=== PATIENT | female | born 1995 | race Hispanic/Latino ===

== ENCOUNTER 2017-01-26 13:00 | Emergency (ER) | payer MEDICAID, OTHER ==
[2017-01-26] MEDS ORDERED: DIPHENHYDRAMINE 25 MG CAPSULE PO ONE (13:30)
--- NOTE | 2017-01-26 14:52 | ER PHYSICIAN DOCUMENTATION ---
Physician Documentation [facility] Name:Fidelia Choi Age:21 yrs Sex:Female :1995 Arrival Date:01/26/2017 Time:13:00 Bed1 Private MD:Binu Rey ED, John Disposition: 01/26/17 13:44 Discharged to Home/Self Care. Impression: Periorbital Swelling. - Condition is Good. - Discharge Instructions: ANGIOEDEMA. - Work release form, Medical Reconciliation form form. - Follow up: Kadeem Cope MD; When: get appointment STACY.; Reason: Continuance of care. - Problem is new. - Symptoms have improved. HPI: 01/26 14:00 This 21 yrs old Female presents to ER via Private Vehicle with complaints of jm Lips Swelling. 14:00 The patient presents with swelling. The problem is located in the upper rory jm border and left corner of mouth. Onset: The symptom(s)/episode began/occurred today, 5 hour(s) ago. Duration: The symptoms are continuous, but are steadily getting better. Associated signs and symptoms: Pertinent negatives: dysphagia, inability to eat, redness in area, vomiting. The patient has not experienced similar symptoms in the past. Pt's upper L lip started to swell. She noted it upon waking. She denies any SOB, dysphagia, or other allergic sx. Pt said she iced it and it went down. She denies new detergents, pets, meds, or foods. . Historical: - Allergies: PENICILLINS; molds ; - Home Meds: 1. Plaquenil 200 mg oral tab 1 tab hs - PMHx: RA; - PSHx: None; - Tetanus: unknown. - Ebola Screening: : Patient negative for fever greater than or equal to 101.5 degrees Fahrenheit, and additional compatible Ebola Virus Disease symptoms. Patient denies exposure to infectious person. Patient denies travel to an Ebola-affected area in the 21 days before illness onset. No symptoms or risks identified at this time. . - Immunization history: Flu Vaccine unknown. - Social history: Smoking status: Patient uses tobacco products, current every day smoker. ROS: 14:00 Constitutional: Negative for fatigue, fever. jm 14:00 ENT: Negative for difficulty swallowing, difficulty handling secretions, hoarseness. 14:00 Neck: Negative for swelling. 14:00 Respiratory: Negative for cough, shortness of breath. 14:00 Abdomen/GI: Negative for vomiting. 14:00 Skin: Positive for swelling, Negative for rash. Exam: 14:00 Constitutional: The patient appears alert, awake, comfortable. 14:00 ENT: Mouth: Lips: upper L lip is swollen (mild). , Posterior pharynx: Uvula: midline, swelling, is not appreciated. 14:00 Neck: External neck: swelling, is not appreciated, ROM/movement: is normal. 14:00 Respiratory: Respirations: normal, Breath sounds: wheezing, is not appreciated. Vital Signs: 13:11 BP 120 / 80; Pulse 82; Resp 20; Temp 98.0(T); Pulse Ox 96% on R/A; Weight 68.04 kg; cb Height 5 ft. 2 in. (157.48 cm); Pain 0/10; 13:36 BP 127 / 90; Pulse 81; Pulse Ox 92% on R/A; cb 13:11 Body Mass Index 27.44 (68.04 kg, 157.48 cm) cb MDM: 13:34 Patient medically screened. 14:00 Differential diagnosis: allergic rxn. Data reviewed: vital signs, nurses notes, and as jm a result, I will discharge patient. Counseling: I had a detailed discussion with the patient and/or guardian regarding: the historical points, exam findings, and any diagnostic results supporting the discharge/admit diagnosis, the need for outpatient follow up, an allergy/psych sales specialist. Medication response: The patient's symptoms have improved. ED course: Pt's lip was already decreasing upon arrival, so I don't know how bad it was. Pt will need allergy f/u. Pt never had any SOB/throat issues, but told to RTED if that every happens. Pt given Benadryl and day off work. . Dispensed Medications: 13:27 Drug: Benadryl 25 mg; Route: PO; cb 13:58 Follow up: Response: No adverse reaction cb Signatures: Marylin Cool RN RN cb Meyer, John, MD MD
--- NOTE | 2017-01-26 14:52 | ER NURSING DOCUMENTATION ---
Nurse's Notes [facility] Name:Fidelia Choi Age:21 yrs Sex:Female :1995 Arrival Date:01/26/2017 Time:13:00 Bed1 Private MD:Binu Rey Diagnosis:Periorbital Swelling Presentation: 01/26 13:16 Presenting complaint: Patient states: unilateral lip swelling since 0700am. Transition cb of care: Home. Onset: The symptoms/episode began/occurred suddenly. Anaphylaxis evaluation, no signs or symptoms of anaphylaxis were noted. Risk considerations: history of a previous allergic reaction, localized reaction, swelling. Notified ED Physician of patient's arrival and CC Nhan Moore notified. 13:16 Method Of Arrival: Private Vehicle cb 13:16 Acuity: CARMELO 3 cb 13:48 Risk considerations: patient states she did have a hive reaction last week to a moldy cb tomato which resolved with Bendryl. Triage Assessment: 13:33 General: Appears in no apparent distress, well groomed, Behavior is cooperative. Pain: cb Denies pain. EENT: upper lip with unilateral swelling. Reports one other occurrence of lip swelling. Neuro: Level of Consciousness is awake, alert, Oriented to person, place, time, event. Cardiovascular: Pulses are 2+ in left radial artery. Respiratory: Airway is patent Trachea midline Respiratory effort is even, unlabored, Respiratory pattern is regular. GI: Denies nausea, pain. : No deficits noted. Derm: Reports hives last week after touching moldy tomato which resolved with Benadryl. Musculoskeletal: No deficits noted. Historical: - Allergies: PENICILLINS; molds ; - Home Meds: 1. Plaquenil 200 mg oral tab 1 tab hs - PMHx: RA; - PSHx: None; - Tetanus: unknown. - Ebola Screening: : Patient negative for fever greater than or equal to 101.5 degrees Fahrenheit, and additional compatible Ebola Virus Disease symptoms. Patient denies exposure to infectious person. Patient denies travel to an Ebola-affected area in the 21 days before illness onset. No symptoms or risks identified at this time. . - Immunization history: Flu Vaccine unknown. - Social history: Smoking status: Patient uses tobacco products, current every day smoker. Screenin:47 Infectious Disease Risk None. Abuse screen: Denies threats or abuse. Denies injuries cb from another. Nutritional screening: No deficits noted. Assessment: 13:44 Respiratory: Airway is patent Trachea midline Breath sounds are clear bilaterally. cb Vital Signs: 13:11 BP 120 / 80; Pulse 82; Resp 20; Temp 98.0(T); Pulse Ox 96% on R/A; Weight 68.04 kg; cb Height 5 ft. 2 in. (157.48 cm); Pain 0/10; 13:36 BP 127 / 90; Pulse 81; Pulse Ox 92% on R/A; cb 13:11 Body Mass Index 27.44 (68.04 kg, 157.48 cm) cb ED Course: 13:02 Patient arrived in ED. ds 13:03 Binu Rey MD is Private Physician. ds 13:16 Marylin Cool, RN is Primary Nurse. cb 13:17 Triage completed. cb 13:34 Jens Justin MD is Attending Physician. jm 13:44 Kadeem Cope MD is Referral Physician. jm 13:47 Valuables Remains with patient Patient has correct armband on for positive cb identification. Bed in low position. Call light in reach. Pulse Ox - RN Monitoring Only NIBP On - RN Monitoring Only. 14:11 Diet: Patient given juice. cb Administered Medications: 13:27 Drug: Benadryl 25 mg; Route: PO; cb 13:58 Follow up: Response: No adverse reaction cb Outcome: 13:44 Discharge ordered by MD. jm 14:24 Discharged to home ambulatory. cb 14:24 Condition: stable 14:24 Discharge Assessment: Patient awake, alert and oriented x 3. No cognitive and/or functional deficits noted. Patient verbalized understanding of disposition instructions. 14:24 Discharge instructions given to patient, Instructed on discharge instructions, follow up and referral plans. medication usage, Demonstrated understanding of instructions. 14:51 Patient left the ED. cb 01/27 10:01 Discharge F/U Call: Spoke with: patient. Have you made a f/u appointment? yes Overall lp Care on a scale of 1-10 with 10 being the best care, you rate our care as: the rating of 10. What is the one thing you feel we could do to improve? Patient's answer: Swelling still present but improved. Signatures: Marylin Cool, RN RN cb Farideh Sanchez RN RN lp Elisha Jack, Reg Reg ds Jens Justin MD MD jm
== END 2017-01-26 14:52 | disposition home or self-care (01) ==
LOC: ER 13:00
DX: R22.0 Localized swelling, mass and lump, head (principal); F17.210 Nicotine dependence, cigarettes, uncomplicated
CPT/HCPCS: 99283; Q0163